=== PATIENT | male | born 1940 | race African-American/Black ===

== ENCOUNTER 2016-08-04 00:06 | Emergency (ER) | payer OTHER ==
[2016-08-04 00:09] VITALS: BP 164/93; PULSE 75; TEMP 98.1; BMI 29.9
[2016-08-04] MEDS ORDERED: ACETAMINOPHEN 500 MG TABLET (FP) PO ONE (00:12)
[2016-08-04] MEDS ORDERED: CYCLOBENZAPRINE HCL 10 MG TABLET (FP) PO ONE (00:12)
--- NOTE | 2016-08-04 00:15 | PDOC ---
History of Present Illness - General Chief Complaint: Pain Stated Complaint: HEAD/NECK PAIN Time Seen by Provider: 08/04/16 00:10 History Source: Patient Exam Limitations: No Limitations - History of Present Illness Initial Comments: 08/04/16 00:12 This is a 76-year-old male with history of type 2 diabetes who comes in complaining of 3-4 days of headache and neck pain. Patient said that he thought it was initially his pillow that was causing the problems and that they've gotten progressively worse to the point that he can't move his neck without turning his body. Secondary to the pain. Patient denies any sore throat, nausea , change in vision or any other associated symptoms. Patient denies history of similar symptoms in the past. PAST MEDICAL HISTORY: no significant history PAST SURGICAL HISTORY: no significant history FAMILY HISTORY: no pertinant history SOCIAL HISTORY: Pt lives with family and is employed. MEDICATIONS: reviewed ALLERGIES: As per nursing notes Review of Systems General: No fevers or chills, no weakness, no weight loss HEENT: No change in vision. No sore throat,. No ear pain CardioVascular: No chest pain or shortness of breath Respiratory:No cough, or wheezing. Gastrointestinal: no nausea, vomitting, diarrhea or constipation, No rectal bleeding Genitourinary: No dysuria, hematuria, or frequency Musculoskeletal: No joint or muscle pain or swelling Neurologic: No headache, vertigo, dizziness or loss of consciousness Psychiatric: nor depression Skin: No rashes or easy bruising Endocrine: no increased thirst or abnormal weight change Allergic: no skin or latex allergy All other systems reviewed and normal GENERAL: The patient is awake, alert, and fully oriented, in no acute distress. HEAD: Normal with no signs of trauma. There is no tenderness on palpation over the temporal arteries and scalp. Neck: There is some spasm on palpation of the neck muscles bilaterally. There is no cervical spine tenderness. There is no lymphadenopathy. There is no meningeal signs. There is decreased range of motion secondary to spasm of the neck muscles. EYES: Pupils equal, round and reactive to light, extraocular movements intact, sclera anicteric, conjunctiva clear. EXTREMITIES: Normal range of motion, no edema. NEUROLOGICAL: Normal speech, normal gait. PSYCH: Normal mood, normal affect. SKIN: Warm, Dry, normal turgor, no rashes or lesions noted. 08/04/16 02:26 CAT scan shows acute sinusitis on the right frontal area Assessment and plan: This is a 76-year-old male comes in complaining of a right- sided headache and neck spasm/torticollis. Patient CAT scan shows acute sinusitis of the right frontal area with this is most likely the cause of his headache. Patient was given a bolus relaxer for the torticollis and a prescription for more muscle relaxer was called to his pharmacy. Patient discharged home with his daughter will follow-up with his primary care doctor as needed. Past History - Past Medical History Allergies/Adverse Reactions: Allergies Allergy/AdvReac Type Severity Reaction Status Date / Time No Known Allergies Allergy Verified 04/18/16 18:24 Home Medications: Ambulatory Orders Metformin HCl 500 mg PO BID 04/06/15 Glipizide [Glucotrol -] 5 mg PO DAILY 09/26/15 Omeprazole [Prilosec] 20 mg PO DAILY 09/26/15 Amoxicillin/Potassium Clav [Augmentin 500-125 Tablet] 1 each PO BID #28 tablet 08/04/16 Cyclobenzaprine HCl [Flexeril 10 mg] 10 mg PO TID PRN #21 tablet 08/04/16 Diabetes: Yes (NIDDM) GI Disorders: Yes (ACID REFLUX) Suicide Attempt (Hx): No - Immunization History Immunization Up to Date: Yes - Psycho/Social/Smoking Cessation Hx Anxiety: No Suicidal Ideation: No Smoking Status: No Smoking History: Never smoked Have you smoked in the past 12 months: No Number of Cigarettes Smoked Daily: 0 If you are a former smoker, when did you quit?: 1984 Hx Alcohol Use: No Drug/Substance Use Hx: No Substance Use Type: None *Physical Exam - Vital Signs Last Vital Signs Temp Pulse Resp BP Pulse Ox 98.1 F 75 18 164/93 98 08/04/16 00:08 08/04/16 00:08 08/04/16 00:08 08/04/16 00:08 08/04/16 00:08 ED Treatment Course - LABORATORY CBC & Chemistry Diagram: 08/04/16 00:10 08/04/16 00:11 *DC/Admit/Observation/Transfer Diagnosis at time of Disposition: Torticollis, acquired Sinusitis, acute frontal Qualifiers: Recurrence: not specified as recurrent Qualified Code(s): J01.10 - Acute frontal sinusitis, unspecified - Discharge Dispostion Disposition: HOME Condition at time of disposition: Stable - Prescriptions Prescriptions: Amoxicillin/Potassium Clav [Augmentin 500-125 Tablet] 1 each PO BID #28 tablet Cyclobenzaprine HCl [Flexeril 10 mg] 10 mg PO TID PRN #21 tablet PRN Reason: Muscle Spasms - Patient Instructions Additional Instructions: Get an [id number] decongestant and use as directed. For the sinus infection take Augmentin one tablet twice a day for 14 days. Tylenol or Motrin as needed for pain. For the neck spasm take Flexeril one tablet as often as 3 times a day the Flexeril medically you drowsy so try to limit to the nighttime hours if possible. Return to the emergency department immediately with ANY new, persistent or worsening symptoms. Continue any medications as previously prescribed by your physician. You should follow up with your primary doctor as soon as possible regarding today's emergency department visit. . Please make sure your doctor reviews the results of your emergency evaluation. Thank you for coming to the Emergency Department today for your care. It was a pleasure to see you today. Please note that your evaluation is INCOMPLETE until you follow-up with your doctor.
[2016-08-04 01:00] LABS: BASOPHIL 0.7 % (0-2.0); EOSINOPHIL 1.6 % (0-4.5); MCH 33.3 pg (25.7-33.7); MCHC 34.2 g/dl (32.0-35.9); MEAN CELL VOLUME 97.4 fl (80-96); MEAN PLT VOLUME 9.4 fl (7.5-11.1); NEUTROPHILS 39.4 % (42.8-82.8); PLATELET COUNT 186 K/MM3 (134-434); RDW 13.1 % (11.9-15.9); WHITE BLOOD COUNT 4.9 K/mm3 (4.0-10.0)
[2016-08-04 01:53] LABS: CALCIUM 8.2 mg/dL (8.5-10.1); COCKROFT - GAULT 68.25; CREATININE 1.2 mg/dL (0.7-1.3)
[2016-08-04] MEDS ORDERED: AMOX TR/POT CLAV 500MG/125MG TABLETS (FP) PO ONE (02:21)
[2016-08-04] MEDS ORDERED: AMOX TR/POT CLAV 500MG/125MG TABLETS (FP) ONE (02:22)
[2016-08-04 02:58] LABS: ERYTHROCYTE SEDIMENTATION RATE 24 mm/hr (0-20)
== END 2016-08-04 02:30 | disposition home or self-care (01) ==
LOC: FER 00:06
DX: M43.6 Torticollis (principal); J01.10 Acute frontal sinusitis, unspecified; E11.9 Type 2 diabetes mellitus without complications; K21.9 Gastro-esophageal reflux disease without esophagitis; Z79.84 Long term (current) use of oral hypoglycemic drugs; Z87.891 Personal history of nicotine dependence
CPT/HCPCS: 36415; 70450-TC; 80048; 85025; 85651; 99282-25

== ENCOUNTER 2016-10-08 08:20 | Observation (INO) | payer OTHER ==
[2016-10-08 08:29] VITALS: BMI 26.4
[2016-10-08 10:15] LABS: BASOPHIL 0.2 % (0-2.0); EOSINOPHIL 0.6 % (0-4.5); MCH 33.2 pg (25.7-33.7); MCHC 34.1 g/dl (32.0-35.9); MEAN CELL VOLUME 97.5 fl (80-96); MEAN PLT VOLUME 8.3 fl (7.5-11.1); NEUTROPHILS 70.8 % (42.8-82.8); PLATELET COUNT 228 K/MM3 (134-434); RDW 12.6 % (11.9-15.9); WHITE BLOOD COUNT 6.9 K/mm3 (4.0-10.0)
[2016-10-08 10:26] LABS: INR 1.23 (0.82-1.09); PROTHROMBIN TIME (PATIENT) 13.6 SEC (9.98-11.88)
--- NOTE | 2016-10-08 10:41 | PDOC ---
History of Present Illness - General Chief Complaint: Shortness of Breath Stated Complaint: PAIN, SOB Time Seen by Provider: 10/08/16 09:48 History Source: Patient Exam Limitations: No Limitations - History of Present Illness Initial Comments: 10/08/16 10:41 CHIEF COMPLAINT: Shortness of breath HISTORY OF PRESENT ILLNESS: This is a 76 year old male with a history of NIDDM, former smoker who presents complaining of months of worsening BLACK and dry cough. He has intermittent chest pain, especially with exertion. These symptoms became acutely worse yesterday and he reports he is unable to walk even one block without chest pain and SOB. Separately, he complains of one month of right flank pain. He denies dysuria, hematuria, fever, or any other symptoms. V/s on arrival are notable for P 94. PCP is Dr. Gonsalves in the [place]. REVIEW OF SYSTEMS: GENERAL/CONSTITUTIONAL: No fever or chills. No weakness. No weight change. HEAD, EYES, EARS, NOSE AND THROAT: No change in vision. No ear pain or discharge. No sore throat. CARDIOVASCULAR: Chest pain on exertion. RESPIRATORY: Dyspnea on exertion, dry cough. GASTROINTESTINAL: No nausea, vomiting, diarrhea or constipation. GENITOURINARY: Right flank pain. No dysuria, frequency, or change in urination. MUSCULOSKELETAL: No joint or muscle swelling or pain. No neck or back pain. SKIN: No rash or easy bruising. NEUROLOGIC: No headache, vertigo, loss of consciousness, or loss of sensation. PSYCHIATRIC: No depression or anxiety. ENDOCRINE: No increased thirst. No abnormal weight change. HEMATOLOGIC/LYMPHATIC: No anemia, easy bleeding, or history of blood clots. ALLERGIC/IMMUNOLOGIC: No hives or skin allergy. No latex allergy. PHYSICAL EXAM: GENERAL: The patient is awake, alert, and fully oriented, in no acute distress. ENT: Pupils equal, round and reactive to light, extraocular movements intact, sclera anicteric, conjunctiva clear. Neck supple. LUNGS: Distant breath sounds, scant expiratory wheeze, mild tachypnea. CV: RRR, S1/S2, no MRG. Cap refill < 2 sec. ABDOMEN: Soft, non-distended, non-tender. EXTREMITIES: Normal range of motion, no edema. No calf tenderness. NEUROLOGICAL: Normal speech, normal gait. CN II-XII grossly intact. PSYCH: Normal mood, normal affect. SKIN: Warm, dry, normal turgor, no rashes or lesions noted. Past History - Past Medical History Allergies/Adverse Reactions: Allergies Allergy/AdvReac Type Severity Reaction Status Date / Time No Known Allergies Allergy Verified 10/08/16 08:25 Home Medications: Ambulatory Orders Metformin HCl 500 mg PO BID 04/06/15 Glipizide [Glucotrol -] 5 mg PO DAILY 09/26/15 Omeprazole [Prilosec] 20 mg PO DAILY 09/26/15 Diabetes: Yes (NIDDM) GI Disorders: Yes (ACID REFLUX) Suicide Attempt (Hx): No - Immunization History Immunization Up to Date: Yes - Psycho/Social/Smoking Cessation Hx Anxiety: No Suicidal Ideation: No Smoking Status: No Smoking History: Never smoked Have you smoked in the past 12 months: No Number of Cigarettes Smoked Daily: 0 If you are a former smoker, when did you quit?: 1984 Information on smoking cessation initiated: No Hx Alcohol Use: No Drug/Substance Use Hx: No Substance Use Type: None *Physical Exam - Vital Signs Last Vital Signs Temp Pulse Resp BP Pulse Ox 98.0 F 94 H 18 99/55 99 10/08/16 08:26 10/08/16 08:26 10/08/16 08:26 10/08/16 08:26 10/08/16 08:26 Heart Score/ECG Review - ECG Intrepretation Comment:: 10/08/16 12:45 NSR at 88bpm, left anterior fascicular block ED Treatment Course - LABORATORY CBC & Chemistry Diagram: 10/08/16 10:07 10/08/16 10:07 - ADDITIONAL ORDERS Additional order review: Laboratory Results 10/08/16 10/08/16 10:07 10:07 INR 1.23 H D-Dimer 238 H 10/08/16 10:07 RBC 3.96 L MCV 97.5 H MCHC 34.1 RDW 12.6 MPV 8.3 D Neutrophils % 70.8 D Lymphocytes % 19.4 D Monocytes % 9.0 Eosinophils % 0.6 Basophils % 0.2 - RADIOLOGY Radiology Studies Ordered: Category Date Time Status CHEST X-RAY PORTABLE* [RAD] Stat Radiology 10/08/16 10:02 Ordered Medical Decision Making - Medical Decision Making 10/08/16 12:22 A/P: 76 year old male with worsening chest pain, BLACK. Exam consistent with COPD. Differential includes COPD exacerbation, CHF, ACS, URI/PNA, less likely PE. 1. EKG 2. Cardiac labs + d-dimer 3. CT spiral renal stone protocol (flank pain) 4. Echocardiogram 5. DuoNeb + albuterol nebs + prednisone 6. Anticipate admission vs. observation CXR: Hyperinflation CT spiral renal stone protocol: prostatic enlargement, no other acute pathology Will admit to telemetry. Discussed with Dr. Valencia. *DC/Admit/Observation/Transfer Diagnosis at time of Disposition: Dyspnea on exertion Chest pain Qualifiers: Chest pain type: other chest pain Qualified Code(s): R07.89 - Other chest pain - Discharge Dispostion Admit: Yes
[2016-10-08 10:46] LABS: ALBUMIN 3.6 g/dl (3.4-5.0); ANION GAP 9 (8-16); CALCIUM 8.9 mg/dL (8.5-10.1); CO2 27 mmol/L (21-32); CREATININE 1.5 mg/dL (0.7-1.3); GLUCOSE,RANDOM 230 mg/dL (74-106); SGOT/AST 17 U/L (15-37); SGPT/ALT 18 U/L (12-78)
[2016-10-08 10:47] LABS: ALK PHOS 117 U/L (45-117); BILIRUBIN,TOTAL 0.7 mg/dL (0.2-1.0); TOT PROT 7.5 g/dl (6.4-8.2); TROPONIN I < 0.02 ng/ml (0.00-0.05)
[2016-10-08 10:55] LABS: URINE APPEARANCE CLEAR; URINE BILIRUBIN NEGATIVE (NEGATIVE); URINE BLOOD NEGATIVE (NEGATIVE); URINE COLOR YELLOW; URINE GLUCOSE (UA) 1+ (NEGATIVE); URINE KETONE 1+ (NEGATIVE); URINE LEUK ESTERASE NEGATIVE (NEGATIVE); URINE NITRITE NEGATIVE (NEGATIVE); URINE PROTEIN NEGATIVE (NEGATIVE); URINE UROBILINOGEN 2.0 E.U/dl E.U./dl (0.2-1.0)
[2016-10-08] MEDS ORDERED: predniSONE 20 MG TABLET (UD) PO ONE (12:12)
[2016-10-08] MEDS ORDERED: ALBUTEROL SO4 2.5/IPRATROPIUM 0.5 INH SOL 3 ML VIAL.NEB. NEB ONE (12:12)
[2016-10-08] MEDS: ALBUTEROL SO4 0.083% IH SOL 2.5 MG/3 ML VIAL.NEB. NEB SCH ×2 (12:55→13:40)
[2016-10-08] MEDS ORDERED: ALBUTEROL SO4 0.083% IH SOL 2.5 MG/3 ML VIAL.NEB. NEB ONE (12:57)
[2016-10-08] MEDS ORDERED: predniSONE 20 MG TABLET (UD) ONE (12:58)
--- NOTE | 2016-10-08 14:16 | EKG ---
Test Reason : Blood Pressure : / mmHG Vent. Rate : 088 BPM Atrial Rate : 088 BPM P-R Int : 166 ms QRS Dur : 088 ms QT Int : 342 ms P-R-T Axes : 062 -46 028 degrees QTc Int : 413 ms NORMAL SINUS RHYTHM LEFT ANTERIOR FASCICULAR BLOCK NONSPECIFIC T WAVE ABNORMALITY ABNORMAL ECG WHEN COMPARED WITH ECG OF 26-SEP-2015 11:45, T WAVE VARIATION Confirmed by ANDREW ANDREW MD ([id number]) on 10/08/2016 2:16:09 PM Referred By: Confirmed By:ANDREW ANDREW MD
--- NOTE | 2016-10-08 15:15 | CON.CARD ---
Consult Consult Specialty:: Cardiology Referred by:: KIYA - Rochelle Gotti NP Reason for Consultation:: Dyspnea - History of Present Illness Chief Complaint: Dyspnea and chest tightness History of Present Illness: HISTORY OF PRESENT ILLNESS: This is a 76 year old male with a history of NIDDM, former smoker who presents complaining of months of worsening BLACK and exertional chest tightness with decreased exercise capacity. He denies palpitations, orthopnea, PND, near or true syncope. He is asymptomatic at rest. Separately, he complains of one month of right flank pain, CT neg for stone. He denies dysuria, hematuria, fever, or any other symptoms. PCP is Dr. Gonsalves in the [place]. - History Source History Provided By: Patient Limitations to Obtaining History: No Limitations - Alcohol/Substance Use Hx Alcohol Use: No - Smoking History Smoking history: Never smoked Have you smoked in the past 12 months: No Aproximately how many cigarettes per day: 0 If you are a former smoker, when did you quit?: 1984 Home Medications - Allergies Allergies/Adverse Reactions: Allergies Allergy/AdvReac Type Severity Reaction Status Date / Time No Known Allergies Allergy Verified 10/08/16 08:25 - Home Medications Home Medications: Ambulatory Orders Metformin HCl 500 mg PO BID 04/06/15 Glipizide [Glucotrol -] 5 mg PO DAILY 09/26/15 Omeprazole [Prilosec] 20 mg PO DAILY 09/26/15 Review of Systems - Review of Systems Cardiovascular: reports: Chest Pain Respiratory: reports: Exercise Intolerance, SOB on Exertion Vital Signs: Vital Signs Temperature 98.0 F 10/08/16 08:26 Pulse Rate 91 H 10/08/16 14:25 Respiratory Rate 22 10/08/16 14:25 Blood Pressure 149/75 10/08/16 14:25 O2 Sat by Pulse Oximetry (%) 98 10/08/16 14:25 Constitutional: Yes: No Distress, Calm Neck: Yes: Supple Respiratory: Yes: Regular, CTA Bilaterally Gastrointestinal: Yes: Normal Bowel Sounds, Soft Cardiovascular: Yes: Regular Rate and Rhythm JVD: No Carotid Bruit: No Heart Sounds: Yes: S1, S2 Edema: No - Other Data Labs, Other Data: INR, PTT INR 1.23 (0.82-1.09) H 10/08/16 10:07 NSR LAD Imaging - Results Chest X-ray: Report Reviewed (Hyperinflated lungs) Cat Scan: Report Reviewed Problem List - Problems (1) Chest pain Code(s): R07.9 - CHEST PAIN, UNSPECIFIED Qualifiers: Chest pain type: other chest pain Qualified Code(s): R07.89 - Other chest pain; R07.8 - Other chest pain (2) Dyspnea on exertion Code(s): R06.09 - OTHER FORMS OF DYSPNEA (3) Hypertension Code(s): I10 - ESSENTIAL (PRIMARY) HYPERTENSION Qualifiers: Hypertension type: essential hypertension Qualified Code(s): I10 - Essential (primary) hypertension (4) Type 2 diabetes mellitus Code(s): E11.9 - TYPE 2 DIABETES MELLITUS WITHOUT COMPLICATIONS Qualifiers: 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 Exertional chest pain and dyspnea with need to r/o ischemia 2. Type 2 DM 3. HTN 4. Former tobacco abuse 5. Acute on CKD P:1. Ruling out for NC, check TSH, lipid panel 2. Persantine Myoview r/o ischemia, start ASA 81 qd 3. Monitor renal recovery, WING-I/ARB once renal fxn stabilizes for renovascular protection 4. Further recommendations to follow, thank you for consultative opportunity
[2016-10-08] MEDS: ASPIRIN 81 MG CHEWABLE TABLETS PO SCH (16:01)
--- NOTE | 2016-10-08 17:02 | PN ---
Progress Note (short form) - Note Progress Note: PULMONARY CONSULTATION DICTATED 10/08/16 IMP DYSPNEA ,R/O ANGINA COPD HTN NIDDM ACUTE ON CKD PULMONARY NODULES H/O TOBACCO USE PLAN INHALED BRONCHODILATORS O2 PRN CHEST CT CARDIAC W/U PER CARDIOLOGY MONITOR LYTES,RENAL FUNCTION PFTS OUTPATIENT DR GRANADOS Problem List - Problems (1) Chest pain Code(s): R07.9 - CHEST PAIN, UNSPECIFIED Qualifiers: Chest pain type: other chest pain Qualified Code(s): R07.89 - Other chest pain; R07.8 - Other chest pain (2) Dyspnea on exertion Code(s): R06.09 - OTHER FORMS OF DYSPNEA (3) Former tobacco use Code(s): Z87.891 - PERSONAL HISTORY OF NICOTINE DEPENDENCE (4) Hypertension Code(s): I10 - ESSENTIAL (PRIMARY) HYPERTENSION Qualifiers: Hypertension type: essential hypertension Qualified Code(s): I10 - Essential (primary) hypertension (5) Type 2 diabetes mellitus Code(s): E11.9 - TYPE 2 DIABETES MELLITUS WITHOUT COMPLICATIONS Qualifiers: Diabetes mellitus nursing home 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
[2016-10-08] MEDS ORDERED: ALBUTEROL SO4 2.5/IPRATROPIUM 0.5 INH SOL 3 ML VIAL.NEB. NEB PRN (17:07)
[2016-10-08] MEDS ORDERED: OXYCODONE/APAP 5/325MG COMBO TABLET PO ONE (18:07)
[2016-10-08] MEDS ORDERED: OXYCODONE/APAP 5/325MG COMBO TABLET ONE (18:18)
[2016-10-08] MEDS ORDERED: DEXTROSE 5%-0.45% SALINE 1,000 ML IV SCH (22:00)
[2016-10-08] MEDS ORDERED: HEPARIN NA (PORCINE) 5,000 UNITS/ML 1ML VIAL ONE (22:04)
[2016-10-08] MEDS: HEPARIN NA (PORCINE) 5,000 UNITS/ML 1ML VIAL SQ SCH (22:05)
[2016-10-08] MEDS ORDERED: glipiZIDE 5 MG TABLET (FP) PO ONE (22:36)
[2016-10-08] MEDS: INSULIN SLIDING SCALE (NOVOLOG) 1 VIAL SQ SCH (22:38)
[2016-10-08] MEDS ORDERED: glipiZIDE 5 MG TABLET (FP) ONE (22:42)
[2016-10-09 01:00] LABS: TROPONIN I < 0.02 ng/ml (0.00-0.05)
[2016-10-09] MEDS: INSULIN SLIDING SCALE (NOVOLOG) 1 VIAL SQ SCH ×3 (06:03→13:28)
--- NOTE | 2016-10-09 06:39 | PN ---
Progress Note (short form) - Note Progress Note: Chief Complaint: Events noted, notes reviewed, denies any chest pain or dyspnea History of Present Illness: Seen and examined on telemetry. Events noted, notes reviewed, denies any chest pain or dyspnea Echocardiography performed yesterday revealed normal left ventricular size and function with no significant valvular pathology Medications: Current Medications Albuterol/Ipratropium (Duoneb -) 1 amp NEB Q4H PRN PRN Reason: SHORTNESS OF BREATH Aspirin (Asa -) 81 mg PO DAILY [facility] Last Admin: 10/08/16 16:01 Dose: 81 mg Glipizide (Glucotrol -) 5 mg PO AM [facility] Last Admin: 10/09/16 06:03 Dose: Not Given Heparin Sodium (Porcine) (Heparin -) 5,000 unit SQ BID [facility] Last Admin: 10/08/16 22:05 Dose: 5,000 unit Dextrose/Sodium Chloride (D5-1/2ns -) 1,000 mls @ 75 mls/hr IV ASDIR [facility] Last Admin: 10/08/16 22:03 Dose: 75 mls/hr Insulin Aspart (Novolog Vial Sliding Scale -) 1 vial SQ ACHS [facility] PRN Reason: Protocol Last Admin: 10/09/16 06:03 Dose: Not Given Pantoprazole Sodium (Protonix Packets For Oral Suspension -) 20 mg PO DAILY [facility] Review of Systems Constitutional: denies Chills or Fever Respiratory: denies Dyspnea or Cough Cardiovascular: As noted above Gastrointestinal: denies Nausea, Vomiting, Diarrhea or Constipation Genitourinary: No Symptoms Reported Musculoskeletal: No Symptoms Reported Vital Signs: Last Vital Signs Temp Pulse Resp BP Pulse Ox 98.0 F 76 20 140/88 96 10/09/16 06:28 10/09/16 06:28 10/09/16 06:28 10/09/16 06:28 10/09/16 02:03 Neck: Supple Negative JVD Respiratory: Clear to auscultation and percussion Cardiovascular: S1 S2 Regular Rate Rhythm Gastrointestinal: Soft benign Normal Bowel Sounds Ext: No Edema Labs: CBC, BMP 10/09/16 05:40 Assessment/Plan ASSESSMENT: 1. Exertional chest pain and dyspnea etiology to be determined, coronary artery disease angina pectoris to be considered as a differential 2. DM 3. HTN 4. Acute on CKD 5. Former tobacco abuse PLAN: 1. Continue Ecotrin 2. Add beta blockers 3. Recommend the addition of WING inhibitors or angiotensin receptor blockers once renal function stabilizes 4. pharmacologic Dipyridamole myocardial perfusion imaging study for evaluation of the above-noted clinical presentation Sanaz Farr MD
[2016-10-09] MEDS ORDERED: metFORMIN HCL 500 MG TABLET (FP) PO SCH (07:00)
[2016-10-09] MEDS ORDERED: glipiZIDE 5 MG TABLET (FP) PO SCH (07:00)
--- NOTE | 2016-10-09 07:11 | CONS ---
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 Patient states he was well until approximately a month and a half to two months ago when he started noticing shortness of breath and dyspnea on exertion. He also complained of chest tightness and heaviness. He denied any chest pain. He denied any nausea, vomiting, or diaphoresis. He noted that his symptoms continued to worsen, at which time he presented to the emergency room. He denied any wheezing. He denied any cough or hemoptysis. He denied any orthopnea. He did have a couple of episodes of TMD. He denies any history of COPD or asthma in the past. Apparently, a month ago, he had right flank pain. At that time, he had a CT renal protocol which was negative for a stone. Patient denies any history of weight loss or night sweats. He denies any recent travel. PAST MEDICAL HISTORY: Again includes [id number] diabetes mellitus and hypertension. REVIEW OF SYSTEMS: No orthopnea. Positive for episodes of DVT, . Positive dyspnea on exertion. Positive for chest tightness. No chest pain. No hemoptysis. No abdominal pain. No lower extremity edema. CURRENT MEDICATIONS: Include aspirin. PHYSICAL EXAMINATION: General: The patient is a well-developed, well-nourished black male, awake, alert, in no acute distress. Vital signs: He is currently afebrile, blood pressure 149/75, respiratory rate 22, O2 saturation is 98% on room air. HEENT: Head is normocephalic atraumatic. Neck: Supple. Heart: Regular, S1, S2. Chest: Clear. Abdomen: Soft. Bowel sounds positive. Extremities: No cyanosis or edema. LABORATORIES: WBC is 6.9, hemoglobin 13.2, hematocrit 38.6, with a platelet count of 228,000. INR is 1.23. D-dimer is 238. BUN 18, creatinine 1.5. BNP is 116. Abdominal CT showed prostate enlarged and no acute pathology, two 3-4-mm pleural based nodules at the right base anteriorly. IMPRESSION: 1. Dyspnea, rule out cardiac etiology, rule out angina. 2. Rule out underlying chronic obstructive pulmonary disease. 3. Pulmonary nodules. PLAN: Inhaled bronchodilators, supplemental O2 p.r.n., cardiac workup as per Cardiology, CT scan of the chest, also PFT as outpatient. FRANKLIN GRANADOS M.D. [id number]
[2016-10-09 07:48] LABS: BASOPHIL 0.3 % (0-2.0); EOSINOPHIL 0.6 % (0-4.5); MCHC 34.1 g/dl (32.0-35.9); MEAN CELL VOLUME 96.8 fl (80-96); MEAN PLT VOLUME 8.8 fl (7.5-11.1); NEUTROPHILS 60.5 % (42.8-82.8); PLATELET COUNT 224 K/MM3 (134-434); RDW 12.3 % (11.9-15.9); WHITE BLOOD COUNT 6.2 K/mm3 (4.0-10.0)
[2016-10-09 09:11] LABS: ALBUMIN 3.4 g/dl (3.4-5.0); ALK PHOS 114 U/L (45-117); ANION GAP 10 (8-16); BILIRUBIN,TOTAL 0.6 mg/dL (0.2-1.0); CALCIUM 9.3 mg/dL (8.5-10.1); CO2 25 mmol/L (21-32); CREATININE 1.1 mg/dL (0.7-1.3); GLUCOSE,RANDOM 135 mg/dL (74-106); SGOT/AST 15 U/L (15-37); SGPT/ALT 19 U/L (12-78); TOT PROT 7.2 g/dl (6.4-8.2)
[2016-10-09 09:31] LABS: LDL CHOLESTEROL (ONLY SJRH) 125 mg/dL (5-100)
[2016-10-09 09:32] LABS: CHOLESTEROL 176 mg/dL (50-200)
[2016-10-09 09:33] LABS: THYROID STIMULATING HORMONE 1.07 uIU/ml (0.358-3.74)
[2016-10-09] MEDS ORDERED: WATER IVPB ONE (10:00)
[2016-10-09] MEDS ORDERED: PANTOPRAZOLE SOD 40 MG SUSPENSION PACKET PO SCH (10:00)
[2016-10-09] MEDS ORDERED: DIPYRIDAMOLE STRESS TEST IVPB ONE (10:00)
[2016-10-09] MEDS ORDERED: DEXTROSE 5% IVPB ONE (10:00)
[2016-10-09 10:16] VITALS: TEMP 98
--- NOTE | 2016-10-09 12:42 | HP ---
Admitting History and Physical - Smoking History Smoking history: Never smoked Have you smoked in the past 12 months: No Aproximately how many cigarettes per day: 0 If you are a former smoker, when did you quit?: 1984 - Alcohol/Substance Use Hx Alcohol Use: Yes Home Medications - Allergies Allergies/Adverse Reactions: Allergies Allergy/AdvReac Type Severity Reaction Status Date / Time No Known Allergies Allergy Verified 10/08/16 08:25 - Home Medications Home Medications: Ambulatory Orders Metformin HCl 500 mg PO BID 04/06/15 Glipizide [Glucotrol -] 5 mg PO DAILY 09/26/15 Omeprazole [Prilosec] 20 mg PO DAILY 09/26/15 Physical Examination Vital Signs: Vital Signs Temperature 98 F 10/09/16 10:14 Pulse Rate 75 10/09/16 10:14 Respiratory Rate 20 10/09/16 10:14 Blood Pressure 135/77 10/09/16 10:14 O2 Sat by Pulse Oximetry (%) 96 10/09/16 09:00
[2016-10-09 13:08] VITALS: BP 146/89; PULSE 89
[2016-10-09] MEDS: HEPARIN NA (PORCINE) 5,000 UNITS/ML 1ML VIAL SQ SCH ×2 (13:08→13:28)
[2016-10-09] MEDS: ASPIRIN 81 MG CHEWABLE TABLETS PO SCH (13:09)
== END 2016-10-09 15:36 | disposition home or self-care (01) ==
LOC: JER 08:20 → INTOOBSV 12:48 → JERBED 12:48 → UNDOADMOB 12:48 → J4W 10-09 01:26 → JERBED 10-09 01:26 → J4W 10-09 07:00
PROVIDERS: ADMIT Internal Medicine; ATTEND Internal Medicine
PROC: 3E033GC Introduction of Other Therapeutic Substance into Peripheral Vein, Percutaneous Approach (ICD-10-PCS; principal; 2016-10-09)
PROC: 3E0337Z Introduction of Electrolytic and Water Balance Substance into Peripheral Vein, Percutaneous Approach (ICD-10-PCS; 2016-10-09)
PROC: 3E0F7GC Introduction of Other Therapeutic Substance into Respiratory Tract, Via Natural or Artificial Opening (ICD-10-PCS; 2016-10-09)
PROC: 3E0F7GC Introduction of Other Therapeutic Substance into Respiratory Tract, Via Natural or Artificial Opening (ICD-10-PCS; 2016-10-09)
DX: R07.89 Other chest pain (principal); R06.09 Other forms of dyspnea; I12.9 Hypertensive chronic kidney disease with stage 1 through stage 4 chronic kidney disease, or unspecified chronic kidney disease; E11.22 Type 2 diabetes mellitus with diabetic chronic kidney disease; N18.9 Chronic kidney disease, unspecified; N17.9 Acute kidney failure, unspecified; Z87.891 Personal history of nicotine dependence; Z79.84 Long term (current) use of oral hypoglycemic drugs; R91.1 Solitary pulmonary nodule; R06.02 Shortness of breath
CPT/HCPCS: 36415; 71010-TC; 71250-TC; 74176; 78452-TC; 80053; 80061; 81003; 82550; 83036; 83721; 83880; 84443; 84484; 85025; 85379; 85610; 87086; 87186; 93005; 93010; 93017; 93306-TC; 99285-25; A9502; G0378; J1245; J1644